=== PATIENT | female | born 1945 | race Caucasian/White ===

== ENCOUNTER 2018-09-01 05:43 | Day surgery (SDC) | payer MEDICARE ==
[2018-08-30 13:07] VITALS: BP 123/67
[2018-08-30 13:43] LABS: BASOPHILS % (AUTO) 0.5 % (0.0-5.0); EOSINOPHILS % (AUTO) 2.2 % (0.0-8.0); HEMATOCRIT 39.2 % (36-48); MEAN CORPUSCULAR HGB CONC 32.8 g/dL (32.0-36.0); MEAN CORPUSCULAR VOLUME 91.5 fL (79-99); MONOCYTES % (AUTO) 10.2 % (3.0-13.0); NEUTROPHILS % (AUTO) 52.1 % (40.0-77.0); NUCLEATED RED BLOOD CELLS 0.1 % (0.0-0.19); PLATELET COUNT (AUTO) 322 K/uL (130-400); RED BLOOD CELL COUNT(AUTO) 4.28 MIL/uL (4.00-5.50); RED CELL DISTRIBUTION WIDTH 14.7 % (11.0-15.5); WHITE BLOOD COUNT (AUTO) 5.8 K/uL (4.8-10.8)
[2018-08-30 13:44] LABS: APPEARANCE,URINE Clear (CLEAR); BILIRUBIN,URINE Small (NEGATIVE); COLOR,URINE Dark Yellow (YELLOW); GLUCOSE, URINE (UA) Negative (NEGATIVE); KETONES,URINE Trace mg/dL (NEGATIVE); LEUKOCYTE ESTERASE ,URINE Moderate (NEGATIVE); NITRATE,URINE Negative (NEGATIVE); OCCULT BLOOD,URINE Negative (NEGATIVE); PH,URINE 5.5 (5.0-8.0); PROTEIN,URINE POS 1+ mg/dL (NEGATIVE)
[2018-08-30 13:49] LABS: CREATININE 1.2 mg/dL (0.5-1.5); POTASSIUM 3.9 mmol/L (3.5-5.1)
[2018-08-30 14:03] LABS: BACTERIA,URINE Moderate /HPF (None Seen); RBC,URINE None Seen /HPF (0-1); WBC,URINE 26-50 /HPF (0-1)
[2018-08-30 14:15] LABS: INR 0.98 (0.85-1.15); PARTIAL THROMBOPLASTIN TIME 29.6 SEC (26.3-35.5); PROTHROMBIN TIME 10.3 SEC (9.6-11.6)
--- NOTE | 2018-08-31 10:25 | NUR ---
UA REPORTED AND FAXED ABNORMAL UA TO DR REYES PRUITT ASST. SHE WILL INFORM DR. CHAMBERS.
--- NOTE | 2018-08-31 11:25 | NUR ---
UA PER DR. CHAMBERS, NO ORDERS RECEIVED. PROCEED WITH PLANNED PROCEDURE.
[~2018-09-01] VITALS: Ht 163.8 cm; Wt 65.2 kg
[2018-09-01] VITALS (9 sets, daily range): BP systolic 112–127; BP diastolic 55–71
[~2018-09-01 05:43] MED LIST: ALPR-410 PO; ALPR0.5T8 PO; AMLO10TA7 PO; ASPI-1181 PO; ATOR20TA65 PO; BUPR300T54 PO; CARV12.511 PO; DESV50TA10 PO; ISOS10TA2 PO; LINA145C PO; PHARMACY COMMUNICATION MISC SCH; SODIUM CHLORIDE 0.9% 500ML 500 ML IV SCH
[2018-09-01] MEDS ORDERED: SODIUM CHLORIDE 0.9% 1000ML 1,000 ML IV ONE (06:10)
[2018-09-01] MEDS ORDERED: HEPARIN SODIUM 1000UNIT/ML 10ML VIAL ONE (07:06)
[2018-09-01] MEDS ORDERED: IOHEXOL-350 75 ML VIAL IV ONE (07:07)
[2018-09-01] MEDS ORDERED: IOHEXOL-350 50ML VIAL IV ONE (07:07)
[2018-09-01] MEDS ORDERED: NITROGLYCERIN 5 MG/ML 10 ML VIAL IV ONE (07:07)
[2018-09-01] MEDS ORDERED: LIDOCAINE HCL 2% 20ML ONE (07:07)
--- NOTE | 2018-09-01 07:13 | NUR ---
TO ONCOLOGY RESEARCH RN PT TAKEN TO ONCOLOGY RESEARCH RN VIA BED BY MASSIEL GRIMALDO RN. PT STABLE.
[2018-09-01] MEDS ORDERED: MIDAZOLAM HCL 1 MG/ML 2ML VIAL ONE (07:24)
--- NOTE | 2018-09-01 08:05 | NUR ---
RECEIVE PT RECEIVED FROM SHIPPER RECEIVER VIA BED. AWAKE ALERT ORIENTED X3. CATH SITE TO RIGHT GROIN SOFT, DRESSING DRY AND INTACT, NO OOZING NO HEMATOMA NOTED. PT INSTRUCTED TO KEEP RIGHT LEG STRAIGHT AND NOT TO ELEVATE HEAD UNTIL BEDREST OVER IN 3 HRS. CALL [facility] WITHIN REACH, FAMILY AT BEDSIDE.
--- NOTE | 2018-09-01 08:49 | NUR ---
DIET PT TOLERATED BREAKFAST WELL. ASSISTED BY .
--- NOTE | 2018-09-01 11:30 | NUR ---
ACTIVITY PT ASSISTED TO BATHROOM, VOIDED WITHOUT ANY PROBLEMS. THEN POSITIONED COMFORTABLY ON COUCH. CATH SITE REMAINS SOFT, NO OOZING NO HEMATOMA NOTED.
--- NOTE | 2018-09-01 12:10 | NUR ---
DISCHARGE PT DISCHARGED VIA WHEELCHAIR WITH . PT STABLE. NO COMPLAINTS MADE. CATH SITE TO RIGHT GROIN REMAINS SOFT, DRESSING DRY AND INTACT, NO OOZING NO HEMATOMA NOTED. DISCHARGE INSTRUCTIONS GIVEN TO AND PT, VERBALIZED UNDERSTANDING. PT/ PREFERS TO GO TO [place] OFFICE FOR FOLLOW UP APPOINTMENT. ALSO DEMONSTRATED TO HOW TO MONITOR CATH SITE FOR BLEEDING, HEMATOMA, APPLY DIRECT PRESSURE AND CALL 911. VERBALIZED UNDERSTANDING.
== END 2018-09-01 12:10 | disposition home or self-care (01) ==
LOC: DAH 05:43
PROVIDERS: ATTEND Internal Medicine Cardiovascular Disease
DX: I25.118 Atherosclerotic heart disease of native coronary artery with other forms of angina pectoris (principal); R07.89 Other chest pain; A80.9 Acute poliomyelitis, unspecified; F32.9 Major depressive disorder, single episode, unspecified; F41.9 Anxiety disorder, unspecified; I10 Essential (primary) hypertension; E78.5 Hyperlipidemia, unspecified; Z98.890 Other specified postprocedural states; Z90.710 Acquired absence of both cervix and uterus; Z88.2 Allergy status to sulfonamides; Z82.49 Family history of ischemic heart disease and other diseases of the circulatory system; F17.210 Nicotine dependence, cigarettes, uncomplicated; Z79.899 Other long term (current) drug therapy
CPT/HCPCS: 36415; 71045; 80048; 81001; 85025; 85610; 85730; 93005; 93458; C1760; C1894; J1644; J2250; J3490 ×2; J7030; Q9967 ×2; 99156; 99157

== ENCOUNTER → 2021-08-12 | Outpatient (CLI) | payer MEDICARE ==
[~2021-08-12] MED LIST changes: +AMLO-258 PO; -AMLO10TA7 PO; -ASPI-1181 PO; +BUPR-317 PO; -BUPR300T54 PO; -ISOS10TA2 PO; -PHARMACY COMMUNICATION MISC SCH; -SODIUM CHLORIDE 0.9% 500ML 500 ML IV SCH
== END | disposition home or self-care (01) ==
LOC: SHCH 11:31
PROVIDERS: ATTEND Internal Medicine Cardiovascular Disease
DX: G45.9 Transient cerebral ischemic attack, unspecified (principal)
CPT/HCPCS: 93880

== ENCOUNTER → 2024-12-21 | Outpatient (CLI) | payer MEDICARE ==
[~2024-12-21] MED LIST changes: -BUPR-317 PO; +BUPR-721 PO
--- NOTE | 2024-12-21 10:33 | EKG ---
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
== END | disposition home or self-care (01) ==
LOC: LAB 09:44
PROVIDERS: ATTEND Family Medicine
DX: I45.2 Bifascicular block (principal); I49.1 Atrial premature depolarization; I10 Essential (primary) hypertension
CPT/HCPCS: 93005

== ENCOUNTER → 2025-01-26 | Outpatient (CLI) | payer MEDICARE ==
--- NOTE | 2025-01-26 14:14 | HMCIMG ---
CHEST 2VWS REASON: PNEUMONIA-BILATERAL COMPARISON: Prior study from 08/30/2018 is available. FINDINGS: Two views of the chest were obtained. Lungs are clear. There is hyperaeration of lungs suggesting of chronic obstructive disease. Heart size is normal. There is uncoiling atherosclerotic change of thoracic aorta. There is no pulmonary vascular congestion. Mediastinum and bony thorax appear unremarkable. There is orthopedic screws seen at the edges study in the left humeral head. There is mild dextroscoliosis of the lower thoracic upper lumbar spine. IMPRESSION: No evidence of airspace consolidation or pulmonary venous congestion Chronic obstructive pulmonary disease..
== END | disposition home or self-care (01) ==
LOC: RAH 12:51
PROVIDERS: ATTEND Family Medicine
DX: J44.0 Chronic obstructive pulmonary disease with (acute) lower respiratory infection (principal); J15.8 Pneumonia due to other specified bacteria
CPT/HCPCS: 71046